=== PATIENT | male | born 1975 | race Asian ===

== ENCOUNTER 2019-07-28 04:58 | Emergency (ER) | payer OTHER ==
[~2019-07-28] VITALS: Ht 162.6 cm; Wt 70.3 kg
[2019-07-28] MEDS ORDERED: PREDNISONE50 MG PO ×2 (06:25→06:29)
[2019-07-28 06:36] VITALS: BP 143/94
--- NOTE | 2019-07-28 11:18 | EKG ---
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
== END 2019-07-28 06:37 | disposition home or self-care (01) ==
LOC: M.ERS 04:58
DX: T63.301A Toxic effect of unspecified spider venom, accidental (unintentional), initial encounter (principal); T78.40XA Allergy, unspecified, initial encounter; R06.02 Shortness of breath; R07.89 Other chest pain; X58.XXXA Exposure to other specified factors, initial encounter; Y92.89 Other specified places as the place of occurrence of the external cause; Y93.9 Activity, unspecified; Y99.8 Other external cause status

== ENCOUNTER 2019-11-01 13:28 | Emergency (ER) | payer OTHER ==
[~2019-11-01] VITALS: Ht 162.6 cm; Wt 65.8 kg
[~2019-11-01 13:28] MED LIST: PREDNISONE50 MG PO
[2019-11-01 14:42] VITALS: BP 157/106
== END 2019-11-01 15:34 | disposition home or self-care (01) ==
LOC: M.ERS 13:28
DX: R04.0 Epistaxis (principal); F17.210 Nicotine dependence, cigarettes, uncomplicated